=== PATIENT | male | born 1955 | race Two or more races ===

== ENCOUNTER 2018-04-04 12:02 | Outpatient (CLI) | payer OTHER ==
[2018-04-06] MEDS ORDERED: LOSARTAN POTASS50 MG PO (09:38)
== END 2018-04-04 15:10 | disposition home or self-care (01) ==
LOC: RAD 501 12:02
DX: D17.0 Benign lipomatous neoplasm of skin and subcutaneous tissue of head, face and neck (principal)

== ENCOUNTER → 2018-04-04 | Outpatient (CLI) | payer OTHER ==
[~2018-04-04] MED LIST: LOSARTAN POTASS50 MG PO
== END | disposition home or self-care (01) ==
LOC: LAB 12:38
DX: R22.2 Localized swelling, mass and lump, trunk (principal); D17.0 Benign lipomatous neoplasm of skin and subcutaneous tissue of head, face and neck

== ENCOUNTER 2018-04-10 05:55 | Day surgery (SDC) | payer OTHER | END 2018-04-10 11:10 | disposition home or self-care (01) | LOC: CIR.AMB 05:55 | DX: D17.0 Benign lipomatous neoplasm of skin and subcutaneous tissue of head, face and neck (principal); D17.1 Benign lipomatous neoplasm of skin and subcutaneous tissue of trunk ==

== ENCOUNTER → 2019-12-07 | Outpatient (CLI) | payer OTHER | END | disposition home or self-care (01) | LOC: MRI 08:45 | DX: M54.2 Cervicalgia (principal) | CPT/HCPCS: 72141 ==

== ENCOUNTER 2020-01-09 07:17 | Outpatient (CLI) | payer OTHER | END 2020-01-09 07:38 | disposition home or self-care (01) | LOC: LAB 07:17 | DX: R93.5 Abnormal findings on diagnostic imaging of other abdominal regions, including retroperitoneum (principal); R79.89 Other specified abnormal findings of blood chemistry; R93.2 Abnormal findings on diagnostic imaging of liver and biliary tract ==

== ENCOUNTER 2020-08-06 06:25 | Outpatient (CLI) | payer OTHER | END 2020-08-06 06:35 | disposition home or self-care (01) | LOC: LAB 06:25 | DX: I10 Essential (primary) hypertension (principal) ==